=== PATIENT | male | born 1955 | race Two or more races ===

== ENCOUNTER 2019-04-08 22:18 | Observation (INO) ==
[2019-04-08 23:27] LABS: Basophils % 0.5 % (0.0-0.8); Eosinophils # 0.1 10*3/uL (0.0-0.87); Eosinophils % 1.6 % (0.00-10.9); Hematocrit 41.9 VOL% (42.0-52.0); Hemoglobin 13.6 GM/DL (14.0-18.0); Immature Granulocytes % 0.3 %; Immature Granulocytes Absolute 0.02 #; Lymphocytes # 1.9 10*3/uL (1.4-4.0); Mean Corpuscular HGB Conc 32.5 GM/DL (32-36); Mean Corpuscular Volume 85.7 FL (87-102); Mean Platelet Volume 9.2 FL (9.6-12.0); Monocytes % 11.6 % (1.7-12.7); Platelet Count 220 T/CUMM (130-400); Red Blood Count 4.89 MC/CUMM (3.8-5.5); Red Cell Distribution Width 13.1 % (9.3-17.3); White Blood Count 7.4 T/CUMM (4-12)
[2019-04-08] MEDS: NITROGLYCERIN SL 0.4 MG TABLET SL PRN (23:30)
[2019-04-08 23:34] LABS: PT Patient Result 10.4 SECS (9.6-12.2)
[2019-04-08 23:45] LABS: Bilirubin,Total 0.8 MG/DL (0.2-1.0); Calcium 8.9 MG/DL (8.5-10.1); Total Protein 6.7 G/DL (6.4-8.3); Troponin I < 0.015 NG/ML (0.00-0.045)
[2019-04-09] MEDS: NITROGLYCERIN SL 0.4 MG TABLET SL PRN (00:19)
[2019-04-09] MEDS ORDERED: ASPIRIN CHEW 81 MG TABLET PO STA (01:14)
[2019-04-09] MEDS ORDERED: ENOXAPARIN 80 MG/0.8 ML SYRINGE SUBCUT SCH (01:30)
[2019-04-09] MEDS ORDERED: ENOXAPARIN 30 MG/0.3 ML SYRINGE SUBCUT SCH (01:30)
[2019-04-09 02:09] LABS: Basophils # 0.1 10*3/uL (0.0-0.2); Basophils % 0.5 % (0.0-0.8); Eosinophils # 0.2 10*3/uL (0.0-0.87); Eosinophils % 2.2 % (0.00-10.9); Hematocrit 42.4 VOL% (42.0-52.0); Hemoglobin 13.6 GM/DL (14.0-18.0); Immature Granulocytes % 0.3 %; Immature Granulocytes Absolute 0.03 #; Lymphocytes # 3.1 10*3/uL (1.4-4.0); Lymphocytes % 33.4 % (21.2-54.2); Mean Corpuscular HGB Conc 32.1 GM/DL (32-36); Mean Corpuscular Volume 86.2 FL (87-102); Mean Platelet Volume 9.2 FL (9.6-12.0); Monocytes % 11.1 % (1.7-12.7); Neutrophils % 52.5 % (38.7-73.9); Platelet Count 237 T/CUMM (130-400); Red Blood Count 4.92 MC/CUMM (3.8-5.5); Red Cell Distribution Width 13.2 % (9.3-17.3); White Blood Count 9.2 T/CUMM (4-12)
[2019-04-09 02:31] LABS: Albumin 3.9 G/DL (3.4-5.0); Bilirubin,Total 0.9 MG/DL (0.2-1.0); Calcium 9.1 MG/DL (8.5-10.1)
[2019-04-09 16:08] VITALS: BP 131/83
[2019-04-09] MEDS ORDERED: MONTELUKAST 10 MG TABLET PO SCH ×2 (19:00→21:00)
[2019-04-10] MEDS ORDERED: FLUTICASONE 50 MCG NASAL SPRAY 16 GM BOTTLE BOTH NARES SCH (09:00)
[2019-04-10] MEDS ORDERED: CETIRIZINE 10 MG TABLET PO SCH (09:00)
[2019-04-10] MEDS ORDERED: MELOXICAM 7.5 MG TABLET PO SCH (09:00)
== END 2019-04-09 18:54 | disposition home or self-care (01) ==
LOC: N.ED 22:18 → N.EDINP 22:18 → N.TELEN 04-09 01:29
PROVIDERS: ADMIT Internal Medicine Cardiovascular Disease; ATTEND Internal Medicine Cardiovascular Disease